=== PATIENT | male | born 1955 | race Caucasian/White ===

== ENCOUNTER 2016-12-17 15:58 | Observation (INO) ==
--- NOTE | 2016-12-17 17:09 | Emergency Department Note ---
Disposition Clinical Impression: Generalized weakness, Hypokalemia, Frequent falls, Multiple contusions Disposition: Admitted As Inpatient Condition: Fair Referrals: NO,PCP [Non-Partnered Physician] - Forms: ED Satisfaction Letter Weakness HPI - General Chief complaint: ED Fall Stated complaint: "I keep on falling" Source: patient Limitations: no limitations Nursing Notes Reviewed: Yes Vital Signs Reviewed: Yes - History of Present Illness Pt Subjective Complaint: generalized weakness/fatigue, difficulty ambulating Onset (ago): day(s) (2) Duration: constant, gradually worsening Location: generalized Pain Scale: 5 Improves with: none Worsens with: none Associated symptoms: Reports: easy bruising. Denies: chest pain, dark stools, diaphoresis, fever/chills, loss of appetite - Related Data Home Medications Medication Instructions Recorded Confirmed Montelukast Sodium [Singulair] 10 mg PO DAILY 02/05/15 12/17/16 Tiotropium [place] [Spiriva] 18 mcg IH DAILY 02/05/15 12/17/16 Aspirin [Adult Low Dose Aspirin EC] 81 mg PO DAILY 10/21/15 12/17/16 Albuterol Sulfate [Proair Hfa] 1 puff IH PRN PRN 12/17/16 12/17/16 Buspirone HCl [Buspar] 10 mg PO DAILY 12/17/16 12/17/16 Citalopram [CeleXA] 40 mg PO DAILY 12/17/16 12/17/16 Fluticasone/Salmeterol [Advair 1 each IH DAILY 12/17/16 12/17/16 250-50 Diskus] Lidocaine/Prilocaine CREAM [Emla] 5 gm TP ONCE PRN 12/17/16 12/17/16 Megestrol Acetate [Megace] 400 mg PO BID PRN 12/17/16 12/17/16 Previous Rx's Medication Instructions Recorded Handicap Placard 1 each .ROUTE AD #1 each 03/19/16 Zolpidem [Ambien] 10 mg PO HS #30 tablet 11/03/16 Oxycodone HCl 15 mg PO TID PRN #90 tablet 12/08/16 Allergies Allergy/AdvReac Type Severity Reaction Status Date / Time No Known Allergies Allergy Verified 05/12/16 11:28 All systems ED: reviewed and negative except as stated. Constitutional: Reports: weakness Cardiovascular: Denies: chest pain Gastrointestinal: Denies: nausea, vomiting, diarrhea Past Medical History - Past Medical History Source: patient, old records reviewed, obtained from family, nursing notes reviewed Medical history: Reports: cancer, COPD, DVT, myocardial infarction Surgical history: Reports: other Psychiatric history: Reports: no psych history - Social History Smoking Status: Current every day smoker Smokeless Tobacco Status: No Alcohol use: Reports: occasionally Drug use: Reports: none Physical Exam - General Limitations: no limitations General appearance: alert - Head Head exam: other (Left facial bruising) - Eye Eye exam: Present: PERRL - Expanded Eye Exam Pupils: Left: reactive - ENT ENT exam: normal exam, normal oropharynx, mucous membranes moist - Expanded ENT Exam External ear exam: Present: normal external inspection Mouth exam: Present: normal external inspection Teeth exam: Present: normal inspection Throat exam: Present: normal inspection - Neck Neck exam: Present: normal inspection, full ROM, trachea midline - Chest Chest inspection: Present: other (She has diffuse bruising of the chest wall) - Respiratory Respiratory exam: Present: other (Diffuse rhonchi). Absent: respiratory distress - Cardiovascular Cardiovascular exam: Present: regular rate, normal rhythm, normal heart sounds - Abdominal Exam Abdominal exam: Present: soft, Non-Tender. Absent: tenderness, distention, guarding, rebound, rigidity - Extremities Exam Extremities exam: Present: normal inspection, full ROM. Absent: tenderness, pedal edema - Expanded Upper Extremity Exam Shoulder exam: Present: normal inspection, full ROM Arm exam: Present: normal inspection, full ROM Elbow exam: Present: normal inspection, full ROM Forearm/Wrist exam: Present: normal inspection, full ROM Hand exam: Present: normal inspection, full ROM Vascular exam: Normal: capillary refill, radial pulse - Expanded Lower Extremity Exam Hip/Pelvis exam: Present: normal inspection, full ROM Upper leg exam: Present: normal inspection, full ROM Knee exam: Present: normal inspection, full ROM Lower leg exam: Present: normal inspection, full ROM Ankle exam: Present: normal inspection, full ROM Foot/toe exam: Present: normal inspection, full ROM Neurovascular/Tendon exam: Absent: motor deficit, sensory deficit, tendon deficit - Back Exam Back exam: Present: normal inspection, full ROM. Absent: tenderness - Neurological Exam Neurological exam: Present: alert, oriented X3 - Expanded Neurological Exam Patient oriented to: Present: person, place, time Coma Scale Eye Opening: Spontaneous Coma Scale Motor Response: Obeys Commands Coma Scale Verbal Response: Oriented Coma Scale Total: 15 - Psychiatric Psychiatric exam: Present: normal affect, normal mood - Skin Skin exam: Present: other (Has diffuse bruising) Course Vital Signs Temperature 98.1 F 12/17/16 16:29 Pulse Rate 64 12/17/16 16:29 Respiratory Rate 18 12/17/16 16:29 Blood Pressure 153/72 12/17/16 16:29 O2 Sat by Pulse Oximetry 95 12/17/16 16:29 Temperature 98.1 F 12/17/16 16:29 Pulse Rate 59 12/17/16 18:42 Respiratory Rate 18 12/17/16 18:42 Blood Pressure 162/61 12/17/16 18:42 O2 Sat by Pulse Oximetry 95 12/17/16 18:42 Oxygen Delivery Oxygen Delivery Room Air Weakness - MDM Narrative Medical decision making narrative: Patient's CT of head and cervical spine were negative chest x-ray negative UA negative laboratory data shows anemia he also has hypokalemia and is not taking any diuretics denies any nausea vomiting. He has diffuse bruising from multiple falls he has bilateral upper and lower extremity weakness and fatigue. - Medical Records Medical records reviewed: Yes I reviewed the patient's medical records. - Lab Data Lab results reviewed: Yes I reviewed the patient's lab results. Result diagrams: 12/17/16 17:04 12/17/16 17:04 Lab Results 12/17/16 12/17/16 12/17/16 Range/Units 17:04 17:04 17:04 WBC 7.1 (4.3-11.1) K/mcL RBC 3.13 L (4.19-5.50) M/mcL Hgb 9.7 L (12.9-16.9) g/dL Hct 29.7 L (37.5-50.1) % MCV 94.9 (83.0-100.0) fL MCH 31.0 (28.0-33.3) pg MCHC 32.7 (31.6-35.5) g/dL RDW 17.2 H (11.5-14.5) % Plt Count 155 (140-400) K/mcL MPV 10.4 (9.4-12.4) fL Immature Gran % 1.1 (0-4) % Seg Neutrophils % 88.3 % Lymphocytes % 6.9 % Monocytes % 3.4 % Eosinophils % 0.3 % Basophils % 0.0 % Neutrophils # 6.3 (1.6-8.9) K/mcL Lymphocytes # 0.5 L (0.6-4.6) K/mcL Monocytes # 0.2 (0.0-1.3) K/mcL Eosinophils # 0.0 (0.0-0.6) K/mcL Basophils # 0.0 (0.0-0.2) K/mcL PT 10.2 (9.4-12.1) Seconds INR 1.0 APTT 24.6 L D (26.0-36.0) Seconds Sodium 139 (136-145) mEq/L Potassium 2.9 L (3.5-4.5) mEq/L Chloride 102 (98-109) mEq/L Carbon Dioxide 31 H (19-29) mEq/L BUN 22 (8-26) mg/dL Creatinine 0.74 (0.72-1.25) mg/dL Est GFR ( Amer) > 60 (> 60) Est GFR (Non-Af Amer) > 60 (> 60) BUN/Creatinine Ratio 30 H (6-26) Glucose 90 (70-99) mg/dL Calculated Osmolality 291 (280-300) Lactic Acid (0.5-2.2) mmol/L Calcium 8.2 L (8.6-10.8) mg/dL Phosphorus 3.1 (2.3-4.7) mg/dL Magnesium 2.1 (1.6-2.6) mg/dL Total Bilirubin 0.7 (0.2-1.2) mg/dL Direct Bilirubin 0.3 (0.0-0.5) mg/dL Indirect Bilirubin 0.4 (0.0-1.2) mg/dL AST 49 H (5-34) Units/L ALT 23 (0-55) Units/L Alkaline Phosphatase 80 (38-126) Units/L Troponin I (0-0.03) ng/mL Serum Total Protein 5.3 L (6.0-8.3) g/dL Albumin 2.8 L (3.5-5.0) g/dL Globulin 2.5 (2.4-3.5) g/dL Albumin/Globulin Ratio 1.1 (1.1-2.2) Urine Color (Yellow) Urine Clarity (Clear) Urine pH (5.0-8.0) pH Units Ur Specific [place] (1.010-1.025) Urine Protein (Neg-Trace) mg/dL Urine Glucose (UA) (Normal) mg/dL Urine Ketones (Negative) mg/dL Urine Blood (Negative) Urine Nitrite (Negative) Urine Bilirubin (Negative) Urine Urobilinogen (Normal) mg/dL Ur Leukocyte Esterase (Negative) Urine Microscopic RBC (0-3) per hpf Urine Microscopic WBC (0-3) per hpf Ur Squamous Epith Cells (None-Few) per lpf Urine Bacteria (None-Few) per hpf Hyaline Casts (None-Few) per lpf Ur Culture Indicated? (NO) 12/17/16 12/17/16 12/17/16 Range/Units 17:04 17:04 18:27 WBC (4.3-11.1) K/mcL RBC (4.19-5.50) M/mcL Hgb (12.9-16.9) g/dL Hct (37.5-50.1) % MCV (83.0-100.0) fL MCH (28.0-33.3) pg MCHC (31.6-35.5) g/dL RDW (11.5-14.5) % Plt Count (140-400) K/mcL MPV (9.4-12.4) fL Immature Gran % (0-4) % Seg Neutrophils % % Lymphocytes % % Monocytes % % Eosinophils % % Basophils % % Neutrophils # (1.6-8.9) K/mcL Lymphocytes # (0.6-4.6) K/mcL Monocytes # (0.0-1.3) K/mcL Eosinophils # (0.0-0.6) K/mcL Basophils # (0.0-0.2) K/mcL PT (9.4-12.1) Seconds INR APTT (26.0-36.0) Seconds Sodium (136-145) mEq/L Potassium (3.5-4.5) mEq/L Chloride (98-109) mEq/L Carbon Dioxide (19-29) mEq/L BUN (8-26) mg/dL Creatinine (0.72-1.25) mg/dL Est GFR ( Amer) (> 60) Est GFR (Non-Af Amer) (> 60) BUN/Creatinine Ratio (6-26) Glucose (70-99) mg/dL Calculated Osmolality (280-300) Lactic Acid 0.5 (0.5-2.2) mmol/L Calcium (8.6-10.8) mg/dL Phosphorus (2.3-4.7) mg/dL Magnesium (1.6-2.6) mg/dL Total Bilirubin (0.2-1.2) mg/dL Direct Bilirubin (0.0-0.5) mg/dL Indirect Bilirubin (0.0-1.2) mg/dL AST (5-34) Units/L ALT (0-55) Units/L Alkaline Phosphatase (38-126) Units/L Troponin I 0.01 (0-0.03) ng/mL Serum Total Protein (6.0-8.3) g/dL Albumin (3.5-5.0) g/dL Globulin (2.4-3.5) g/dL Albumin/Globulin Ratio (1.1-2.2) Urine Color Dark Yellow (Yellow) Urine Clarity Clear (Clear) Urine pH 6.0 (5.0-8.0) pH Units Ur Specific [place] 1.027 H (1.010-1.025) Urine Protein 30 H (Neg-Trace) mg/dL Urine Glucose (UA) Normal (Normal) mg/dL Urine Ketones Negative (Negative) mg/dL Urine Blood Negative (Negative) Urine Nitrite Negative (Negative) Urine Bilirubin Negative (Negative) Urine Urobilinogen Normal (Normal) mg/dL Ur Leukocyte Esterase Negative (Negative) Urine Microscopic RBC 0-3 (0-3) per hpf Urine Microscopic WBC 0-3 (0-3) per hpf Ur Squamous Epith Cells Moderate H (None-Few) per lpf Urine Bacteria None Seen (None-Few) per hpf Hyaline Casts None Seen (None-Few) per lpf Ur Culture Indicated? NO (NO)
[2016-12-17 17:30] LABS: Eosinophils % 0.3 %; Hematocrit 29.7 % (37.5-50.1); Hemoglobin 9.7 g/dL (12.9-16.9); Immature Granulocytes % 1.1 % (0-4); Lymphocytes # 0.5 K/mcL (0.6-4.6); Lymphocytes % 6.9 %; Mean Corpuscular HGB Conc 32.7 g/dL (31.6-35.5); Mean Corpuscular Volume 94.9 fL (83.0-100.0); Mean Platelet Volume 10.4 fL (9.4-12.4); Monocytes # 0.2 K/mcL (0.0-1.3); Monocytes % 3.4 %; Neutrophils # 6.3 K/mcL (1.6-8.9); Platelet Count 155 K/mcL (140-400); Red Blood Count 3.13 M/mcL (4.19-5.50); Red Cell Distribution Width 17.2 % (11.5-14.5); Segmented Neutrophils % 88.3 %
[2016-12-17 17:38] LABS: Prothrombin Time 10.2 Seconds (9.4-12.1)
[2016-12-17 17:41] LABS: Alanine Aminotransferase 23 Units/L (0-55); Albumin 2.8 g/dL (3.5-5.0); Albumin/Globulin Ratio 1.1 (1.1-2.2); Alkaline Phosphatase 80 Units/L (38-126); Aspartate Amino Transferase 49 Units/L (5-34); BUN/Creatinine Ratio 30 (6-26); Bilirubin,Direct 0.3 mg/dL (0.0-0.5); Bilirubin,Indirect 0.4 mg/dL (0.0-1.2); Bilirubin,Total 0.7 mg/dL (0.2-1.2); Blood Urea Nitrogen 22 mg/dL (8-26); Calcium 8.2 mg/dL (8.6-10.8); Carbon Dioxide 31 mEq/L (19-29); Chloride 102 mEq/L (98-109); Globulin 2.5 g/dL (2.4-3.5); Glucose 90 mg/dL (70-99); Magnesium 2.1 mg/dL (1.6-2.6); Osmolality,Calculated 291 (280-300); Phosphorous 3.1 mg/dL (2.3-4.7); Potassium 2.9 mEq/L (3.5-4.5); Sodium 139 mEq/L (136-145); Total Protein 5.3 g/dL (6.0-8.3); eGFR For African Americans > 60 (> 60); eGFR For Non-African Americans > 60 (> 60)
[2016-12-17 17:45] LABS: Activated Partial Thrombo Time 24.6 Seconds (26.0-36.0)
[2016-12-17 18:36] LABS: Bilirubin,Urine Negative (Negative); Blood,Urine Negative (Negative); Clarity,Urine Clear (Clear); Color,Urine Dark Yellow (Yellow); Glucose,Urine (UA) Normal (Normal); Ketones,Urine Negative (Negative); Leukocyte Esterase,Urine Negative (Negative); Nitrite,Urine Negative (Negative); Protein,Urine 30 mg/dL (Neg-Trace); Specific Gravity,Urine 1.027 (1.010-1.025); Urobilinogen,Urine Normal (Normal)
[2016-12-17 18:37] LABS: Bacteria,Urine None Seen per hpf (None-Few); Hyaline Casts,Urine None Seen per lpf (None-Few); RBC,Urine 0-3 per hpf (0-3); Squamous Epithelial Cell,Urine Moderate per lpf (None-Few); WBC,Urine 0-3 per hpf (0-3)
[2016-12-17] MEDS ORDERED: Potassium Chloride 40 MEQ, Lidocaine 1% 2 ML in D5% in Water 500 ML IVPB ONE (18:41)
[2016-12-17] MEDS ORDERED: *HR* OxyCODONE Immed Rel 15 MG TABLET PO PRN (23:03)
[2016-12-17] MEDS ORDERED: Megestrol Acetate 400 MG/10 ML UDC PO PRN (23:03)
--- NOTE | 2016-12-17 23:07 | Internal Med History&Physical ---
Date of Encounter: 12/17/16 Time of Encounter: 23:05 Assessment and Plan (1) Small cell lung cancer Current visit: No Status: Acute Stage IV. Currently on gemcitabine. Weight loss and significant functional decline. Qualifiers: Qualified Code(s): C34.90 - Malignant neoplasm of unspecified part of unspecified bronchus or lung (2) Generalized weakness Current visit: Yes Status: Acute Generalized weakness and recurrent falls. Likely related to deconditioning from functional decline related to cancer, hypokalemia. Another possibility is for neoplastic syndrome causing some sort of myopathy. I will check cortisol level also in am. I would also check MRI of the brain in a.m. Physical therapy to see the patient. Plan for skilled care. (3) Hypokalemia Current visit: Yes Status: Acute Due to decreased PO intake. This is being replaced. (4) COPD (chronic obstructive pulmonary disease) Current visit: No Status: Acute Stable no active wheezing. Qualifiers: COPD type: chronic bronchitis Chronic bronchitis type: mucopurulent Qualified Code(s): J41.1 - Mucopurulent chronic bronchitis Internal Medicine - H&P: HPI Chief complaint: recurrent falls History of present illness: Mr. Hitchcock is a 61 year old male with stage IV small cell lung cancer on gemcitabine, presents to the emergency room today because of recurrent falls. Patient has had 3 falls since Thursday 2 days ago. He describes falls as due to weakness and gait unsteadiness. He has been noticing that both was lower extremities are very weak. He has been ambulating with a walker. Still able to raise both lower extremity against gravity. He apathetic has declined because of cancer and potassium was found to be 2.9 today. He denies any diary and is not taking any diuretics. He denies any hematoemesis, melena or hematochezia. He had an MRI of the brain performed in October 2016 showing subdural hematoma or hygromas. But no evidence of metastatic disease. He denies any syncope as a cause of the fall. He denies any new focal weakness much rather generalized weakness. He has slight left-sided weakness related to prior CVA. There is no witness seizure activity. Yesterday patient fell on the ground stayed for 2 hours presented to the emergency room workup was unremarkable and was discharged home. He presents today because of recurrent falls. Patient lost 4 pounds in the past 3 weeks. Family is interested in skilled care. Past Med Surg Social Fam HX - Past Medical History Medical history: cancer, COPD, DVT, myocardial infarction Psychiatric history: no psych history - Past Surgical History Surgical History: other - Social History Smoking Status: Current every day smoker Smokeless Tobacco Status: No Alcohol use: occasionally Drug use: none - Family History Father Hx Family Cancer: Yes Internal Medicine - H&P: Meds Montelukast Sodium [Singulair] 10 mg PO DAILY 02/05/15 [History] Tiotropium [place] [Spiriva] 18 mcg IH DAILY 02/05/15 [History] Aspirin [Adult Low Dose Aspirin EC] 81 mg PO DAILY 10/21/15 [History] Zolpidem [Ambien] 10 mg PO HS #30 tablet 11/03/16 [Rx] Oxycodone HCl 15 mg PO TID PRN #90 tablet 12/08/16 [Rx] Albuterol Sulfate [Proair Hfa] 2 puff IH Q4H PRN 12/17/16 [History] Buspirone HCl [Buspar] 10 mg PO DAILY 12/17/16 [History] Citalopram [CeleXA] 40 mg PO DAILY 12/17/16 [History] Fluticasone/Salmeterol [Advair 250-50 Diskus] 1 each IH BID 12/17/16 [History] LORazepam [Ativan] 1 mg PO HS PRN 12/17/16 [History] Lidocaine/Prilocaine CREAM [Emla] 1 appl TP ONCE PRN 12/17/16 [History] Megestrol Acetate [Megace] 400 mg PO BID PRN 12/17/16 [History] Allergies No Known Allergies Allergy (Verified 05/12/16 11:28) All Systems PM: A 10-system review of systems was performed and is negative for pertinent findings except as documented above in the HPI. Review of systems: 10 point review systems is negative except for HPI. - Constitutional Vitals: Temp Pulse Resp BP Pulse Ox 98.1 F 59 14 149/79 95 12/17/16 16:29 12/17/16 18:42 12/17/16 20:43 12/17/16 20:43 12/17/16 18:42 Exam: Gen.: patient is lethargic oriented times 3 cardiac: normal S1 S2 no additional sounds or murmurs chest: no active wheezing or bronchial breathing abdomen soft nontender nondistended normal bowel sounds lower extremity no swelling. He is able to raise both lower extremity against gravity. Neuro: no new focal deficits Internal Med - H&P Results - Labs CBC & Chem 7: 12/17/16 17:04 12/17/16 17:04
[2016-12-17] MEDS: 0.9 % Sodium Chloride 1,000 ML IVC SCH (23:26)
[2016-12-18 05:29] LABS: Basophils % 0.1 %; Eosinophils % 0.3 %; Hematocrit 27.8 % (37.5-50.1); Hemoglobin 9.1 g/dL (12.9-16.9); Immature Granulocytes % 0.8 % (0-4); Lymphocytes # 0.7 K/mcL (0.6-4.6); Lymphocytes % 8.8 %; Mean Corpuscular HGB Conc 32.7 g/dL (31.6-35.5); Mean Corpuscular Hemoglobin 30.8 pg (28.0-33.3); Mean Corpuscular Volume 94.2 fL (83.0-100.0); Mean Platelet Volume 10.6 fL (9.4-12.4); Monocytes # 0.2 K/mcL (0.0-1.3); Monocytes % 2.1 %; Neutrophils # 6.6 K/mcL (1.6-8.9); Platelet Count 146 K/mcL (140-400); Red Blood Count 2.95 M/mcL (4.19-5.50); Segmented Neutrophils % 87.9 %
[2016-12-18 05:51] LABS: BUN/Creatinine Ratio 24 (6-26); Blood Urea Nitrogen 16 mg/dL (8-26); Calcium 7.9 mg/dL (8.6-10.8); Carbon Dioxide 30 mEq/L (19-29); Chloride 103 mEq/L (98-109); Glucose 85 mg/dL (70-99); Magnesium 1.8 mg/dL (1.6-2.6); Osmolality,Calculated 290 (280-300); Potassium 3.1 mEq/L (3.5-4.5); Sodium 140 mEq/L (136-145); eGFR For African Americans > 60 (> 60); eGFR For Non-African Americans > 60 (> 60)
[2016-12-18] MEDS: Aspirin Enteric Coated 81 MG Tablet PO SCH (07:56)
[2016-12-18] MEDS: Tiotropium 18 MCG inhalation IH SCH (08:56)
[2016-12-18] MEDS ORDERED: Budesonide/Formoterol 80/4.5 MDI IH SCH (10:00)
[2016-12-18] MEDS: 0.9 % Sodium Chloride 1,000 ML IVC SCH (12:27)
--- NOTE | 2016-12-18 14:00 | Internal Med Progress Note ---
Date of Encounter: 12/18/16 Time of Encounter: 10:30 - Assessment and plan (1) Frequent falls Current Visit: Yes Status: Acute Assessment and plan: OT and PT consultations are pending. On examination, patient with left upper extremity weakness however legs are weak but equal. Speech is slightly slurred which is chronic as well as left upper extremity weakness from a prior CVA. Unintentional weight loss noted, he is on Megace, nutrition brought on board. Urinalysis negative. Cervical spine CT negative. Chest x-ray without acute processes. Head CT negative. MRI pending. (2) Multiple contusions Current Visit: Yes Status: Acute Assessment and plan: Patient with multiple computed contusions over most of his body. He has a history of thrombocytopenia but currently levels are normal. No signs of active bleeding, will trend. (3) TIA (transient ischemic attack) Current Visit: No Status: Suspected Qualifiers: Transient cerebral ischemia type: unspecified Qualified Code(s): G45.9 - Transient cerebral ischemic attack, unspecified (4) Hemiparesis, left Current Visit: Yes Status: Chronic Assessment and plan: LUE weakness; strength equal to bilateral lower extremities. (5) Unintentional weight loss Current Visit: Yes Status: Acute Assessment and plan: acute on chronic. Patient is a poor historian regarding PO intake. Will consult nutrition. Home medication of Megace listed as when necessary, changed to scheduled (6) Cerebrovascular accident Current Visit: No Status: Chronic Assessment and plan: No new focal neurological weaknesses. He is left-sided weakness and slurred speech is chronic from prior CVA. MRI pending. OT and PT are on board as well. Qualifiers: CVA mechanism: unspecified Qualified Code(s): I63.9 - Cerebral infarction, unspecified (7) Anemia Current Visit: No Status: Chronic Assessment and plan: Currently at the low end of his normal. Suspect anemia of chronic disease however no recent checks of his iron, B12, folate, TSH Qualifiers: Anemia type: unspecified type Qualified Code(s): D64.9 - Anemia, unspecified (8) Alcohol abuse Current Visit: No Status: Chronic Assessment and plan: No signs of withdrawal, will continue to monitor (9) Generalized weakness Current Visit: No Status: Acute Assessment and plan: OT and PT consultations are pending. (10) Confusion Current Visit: No Status: Resolved Assessment and plan: Patient is alert and oriented 3. He is a remarkably poor historian on the details when asked detailed questions however he is oriented 3. Speech is slightly slurred/garbled but fully intelligible. (11) Hypokalemia Current Visit: Yes Status: Acute Assessment and plan: Improving, we will continue to supplement and trend. Magnesium levels normal (12) Tobacco abuse Current Visit: No Status: Chronic Assessment and plan: Declines counseling (13) COPD (chronic obstructive pulmonary disease) Current Visit: No Status: Chronic Assessment and plan: No acute exacerbation Qualifiers: COPD type: chronic bronchitis Chronic bronchitis type: mucopurulent Qualified Code(s): J41.1 - Mucopurulent chronic bronchitis (14) Small cell lung cancer Current Visit: No Status: Chronic Assessment and plan: Plain film imaging without acute processes. ITS Impressions Chest X-Ray 12/17/16 17:07 IMPRESSION: 1. No active pulmonary disease. 2. Stable opacification of the right lung apex. Please refer to the CT chest report dated 11/0610/09/2016. D/ / Ramone Plummer MD / Ramone Plummer MD Interpreting Provider: Ramone Plummer MD Qualifiers: Laterality: right Qualified Code(s): C34.91 - Malignant neoplasm of unspecified part of right bronchus or lung - Subjective Interval history: Patient seen and examined. On examination, patient resting supine in bed. Patient currently denies pain or shortness of breath. He states he continues to feel weak. He states that he feels as if he is eating well. - Constitutional Vitals: Temp Pulse Resp BP Pulse Ox 97.8 F 61 17 136/60 98 12/18/16 11:18 12/18/16 11:18 12/18/16 11:18 12/18/16 11:18 12/18/16 11:18 General appearance: Present: cachectic, A&O X 3, pleasant, no acute distress, answers questions appropriately - Head Head exam: Present: atraumatic, normocephalic - Eye Eye exam: Present: PERRL, conjuntiva pink, sclera anicteric Pupils: Present: PERRL - Neck Neck exam general surgery: Present: supple, trachea midline. Absent: lymphadenopathy - Respiratory Respiratory exam: Present: decreased breath sounds. Absent: accessory muscle use, rales, respiratory distress, rhonchi, wheezes - Cardiovascular Cardiovascular exam: Present: RRR, +S1, +S2. Absent: diastolic murmur, gallop, rubs, systolic murmur - GI/Abdominal GI/Abdominal exam: Present: normal bowel sounds, soft, no peritoneal signs. Absent: distended, tenderness - Extremities Exam Extremities exam: Present: warm, radial pulses palpable and symetrical. Absent : calf tenderness, cyanotic, pedal edema - Neurological Exam Neurological exam: Present: alert, CN II-XII intact, oriented X3, no focal deficits, speech deficit. Absent: strengths equal and symetr throughout, pronater drift, facial droop - Expanded Neurological Exam Neurological exam expanded: Present: protecting the airway Patient oriented to: Present: person, place, time Speech: Present: fluid speech, slurred Cranial Nerves: EOM's intact PM: Normal Neuro motor strength exam: LUE: 4, RUE: 5, LLE: 5, RLE: 5 Coma Scale Eye Opening: Spontaneous Coma Scale Motor Response: Obeys Commands Coma Scale Verbal Response: Oriented Coma Scale Total: 15 - Skin Skin exam: Present: dry, intact, pallor, warm Additional comments: ecchymosis to most of body surface area Internal Medicine: Result - Labs CBC & Chem 7: 12/18/16 05:15 12/18/16 05:15 Labs: Short CBC 12/18/16 Range/Units 05:15 WBC 7.5 (4.3-11.1) K/mcL Hgb 9.1 L (12.9-16.9) g/dL Hct 27.8 L (37.5-50.1) % Plt Count 146 (140-400) K/mcL Neutrophils # 6.6 (1.6-8.9) K/mcL BMP 12/18/16 05:15 Sodium 140 Potassium 3.1 L Chloride 103 Carbon Dioxide 30 H BUN 16 Creatinine 0.66 L Glucose 85 Calcium 7.9 L - ABG Interpretation ABG results: PT/INR, D-dimer PT 10.2 Seconds (9.4-12.1) 12/17/16 17:04 Consult Discharge Plan - Plan Referrals: Feliz Dahl DO [Primary Care Provider] -
[2016-12-18] MEDS ORDERED: *HR* LORazepam 1 MG TABLET PO PRN (14:13)
--- NOTE | 2016-12-18 14:46 | Electrocardiograph Report ---
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
[2016-12-18] MEDS: Nicotine 21 MG PATCH.TD24 TD SCH (16:51)
[2016-12-18] MEDS: 0.9 % Sodium Chloride w KCl 40 MEQ/1,000 ML MLS IVC SCH (16:52)
[2016-12-18] MEDS: Megestrol Acetate 400 MG/10 ML UDC PO SCH (20:04)
[2016-12-19 05:39] LABS: Basophils % 0.1 %; Eosinophils % 0.1 %; Hemoglobin 9.3 g/dL (12.9-16.9); Immature Granulocytes % 0.8 % (0-4); Lymphocytes # 0.6 K/mcL (0.6-4.6); Lymphocytes % 7.2 %; Mean Corpuscular HGB Conc 33.2 g/dL (31.6-35.5); Mean Corpuscular Hemoglobin 31.3 pg (28.0-33.3); Mean Corpuscular Volume 94.3 fL (83.0-100.0); Monocytes # 0.2 K/mcL (0.0-1.3); Monocytes % 1.7 %; Neutrophils # 7.9 K/mcL (1.6-8.9); Platelet Count 144 K/mcL (140-400); Red Blood Count 2.97 M/mcL (4.19-5.50); Red Cell Distribution Width 17.2 % (11.5-14.5); Segmented Neutrophils % 90.1 %
[2016-12-19 05:51] LABS: % Iron Saturation 44 % (20-55); BUN/Creatinine Ratio 19 (6-26); Blood Urea Nitrogen 12 mg/dL (8-26); Carbon Dioxide 28 mEq/L (19-29); Chloride 103 mEq/L (98-109); Glucose 87 mg/dL (70-99); Iron 104 mcg/dL (65-175); Osmolality,Calculated 283 (280-300); Potassium 3.6 mEq/L (3.5-4.5); Sodium 137 mEq/L (136-145); Transferrin 167 mg/dL (174-364); eGFR For African Americans > 60 (> 60); eGFR For Non-African Americans > 60 (> 60)
[2016-12-19 06:11] LABS: Ferritin 594 ng/ml (22-275)
[2016-12-19] MEDS: Megestrol Acetate 400 MG/10 ML UDC PO SCH (07:29)
[2016-12-19] MEDS: Nicotine 21 MG PATCH.TD24 TD SCH (07:29)
[2016-12-19] MEDS: 0.9 % Sodium Chloride w KCl 40 MEQ/1,000 ML MLS IVC SCH (07:29)
[2016-12-19] MEDS: Aspirin Enteric Coated 81 MG Tablet PO SCH (07:30)
[2016-12-19] MEDS ORDERED: Budesonide/Formoterol 80/4.5 MDI IH SCH (10:00)
[2016-12-19] MEDS: Tiotropium 18 MCG inhalation IH SCH (10:18)
[2016-12-19 12:02] LABS: Thyroid Stimulating Hormone 1.348 mcIU/mL (0.350-4.840)
--- NOTE | 2016-12-19 13:56 | Internal Med Progress Note ---
Date of Encounter: 12/19/16 Time of Encounter: 10:00 - Assessment and plan (1) Frequent falls Current Visit: Yes Status: Acute Assessment and plan: OT and PT have recommended inpatient rehabilitation. Patient initially resistant but after speaking to his family, he is consenting to be placed. We are having difficulty placing him at this time. Per social human services assistants, we have not found a facility thus far that has beds and that allows the patient to smoke. Awaiting placement. He is not safe to be discharged in the meantime. On examination, patient with left upper extremity weakness however legs are weak but equal. Speech is slightly slurred which is chronic as well as left upper extremity weakness from a prior CVA. Unintentional weight loss noted, he is on Megace, nutrition brought on board. Urinalysis negative. Cervical spine CT negative. Chest x-ray without acute processes. Head CT negative. MRI negative for acute processes ITS Impressions Cervical Spine CT 12/17/16 17:07 IMPRESSION: No acute abnormality of the cervical spine. D/ / Taras Teresa MD / Taras Teresa MD Interpreting Provider: Taras Teresa MD Chest X-Ray 12/17/16 17:07 IMPRESSION: 1. No active pulmonary disease. 2. Stable opacification of the right lung apex. Please refer to the CT chest report dated 11/0610/09/2016. D/ / Ramone Plummer MD / Ramone Plummer MD Interpreting Provider: Ramone Plummer MD Head CT 12/17/16 17:07 IMPRESSION: 1. No acute intracranial abnormality. 2. Diffuse cerebral atrophy with chronic small vessel ischemic disease. D/ / Ramone Plummer MD / Ramone Plummer MD Interpreting Provider: Ramone Plummer MD Brain MRI 12/17/16 22:42 IMPRESSION: No evidence of acute ischemic insult, acute intracranial hemorrhage, or mass lesion. No evidence of intracranial metastatic disease. Interval resolution of right cerebral convexity subdural hygroma. Interval progression of cerebral white matter disease, likely progressive post radiation changes. Cerebellar volume loss appears increased. D/ / Ace Cunningham MD / Ace Cunningham MD Interpreting Provider: Ace Cunningham MD (2) Multiple contusions Current Visit: Yes Status: Acute Assessment and plan: Patient with multiple contusions over most of his body. He has a history of thrombocytopenia but currently levels are normal. No signs of active bleeding, will trend. (3) TIA (transient ischemic attack) Current Visit: No Status: Suspected Qualifiers: Transient cerebral ischemia type: unspecified Qualified Code(s): G45.9 - Transient cerebral ischemic attack, unspecified (4) Hemiparesis, left Current Visit: Yes Status: Chronic Assessment and plan: LUE weakness; strength equal to bilateral lower extremities. (5) Unintentional weight loss Current Visit: Yes Status: Acute Assessment and plan: acute on chronic. Patient is a poor historian regarding PO intake. Will consult nutrition. Home medication of Megace listed as when necessary, changed to scheduled (6) Cerebrovascular accident Current Visit: No Status: Chronic Assessment and plan: No new focal neurological weaknesses. He is left-sided weakness and slurred speech is chronic from prior CVA. MRI negative for acute processes. OT and PT have recommended inpatient rehabilitation. Patient's stated that he was independent with his ADLs up until several days ago. Qualifiers: CVA mechanism: unspecified Qualified Code(s): I63.9 - Cerebral infarction, unspecified (7) Anemia Current Visit: No Status: Chronic Assessment and plan: Currently at the low end of his normal. Suspect anemia of chronic disease however no recent checks of his iron, B12, folate, TSH. No indication for supplementation at this time Qualifiers: Anemia type: unspecified type Qualified Code(s): D64.9 - Anemia, unspecified (8) Alcohol abuse Current Visit: No Status: Chronic Assessment and plan: No signs of withdrawal, will continue to monitor (9) Generalized weakness Current Visit: No Status: Acute Assessment and plan: Awaiting ECF placement (10) Confusion Current Visit: No Status: Resolved Assessment and plan: Patient is alert and oriented 3. He is a remarkably poor historian on the details when asked detailed questions however he is oriented 3. Speech is slightly slurred/garbled but fully intelligible. (11) Hypokalemia Current Visit: Yes Status: Resolved (12) Tobacco abuse Current Visit: No Status: Chronic Assessment and plan: Declines counseling (13) COPD (chronic obstructive pulmonary disease) Current Visit: No Status: Chronic Assessment and plan: No acute exacerbation Qualifiers: COPD type: chronic bronchitis Chronic bronchitis type: mucopurulent Qualified Code(s): J41.1 - Mucopurulent chronic bronchitis (14) Small cell lung cancer Current Visit: No Status: Chronic Assessment and plan: Plain film imaging without acute processes. ITS Impressions Chest X-Ray 12/17/16 17:07 IMPRESSION: 1. No active pulmonary disease. 2. Stable opacification of the right lung apex. Please refer to the CT chest report dated 11/0610/09/2016. D/ / Ramone Plummer MD / Ramone Plummer MD Interpreting Provider: Ramone Plummer MD Qualifiers: Laterality: right Qualified Code(s): C34.91 - Malignant neoplasm of unspecified part of right bronchus or lung - Subjective Interval history: Patient seen and examined. On examination, patient resting supine in bed. Patient currently denies pain or shortness of breath. He states he continues to feel weak. He states that he feels as if he is eating well but his son is at the bedside and has brought him in [place] that he has not eaten. - Constitutional Vitals: Temp Pulse Resp BP Pulse Ox 97.5 F L 76 14 154/73 97 12/19/16 10:55 12/19/16 10:55 12/19/16 10:55 12/19/16 10:55 12/19/16 10:55 General appearance: Present: cachectic, A&O X 3, pleasant, no acute distress, answers questions appropriately - Head Head exam: Present: atraumatic, normocephalic - Eye Eye exam: Present: PERRL, conjuntiva pink, sclera anicteric Pupils: Present: PERRL - Neck Neck exam general surgery: Present: supple, trachea midline. Absent: lymphadenopathy - Respiratory Respiratory exam: Present: decreased breath sounds. Absent: accessory muscle use, rales, respiratory distress, rhonchi, wheezes - Cardiovascular Cardiovascular exam: Present: RRR, +S1, +S2. Absent: diastolic murmur, gallop, rubs, systolic murmur - GI/Abdominal GI/Abdominal exam: Present: normal bowel sounds, soft, no peritoneal signs. Absent: distended, tenderness - Extremities Exam Extremities exam: Present: warm, radial pulses palpable and symetrical. Absent : calf tenderness, cyanotic, pedal edema - Neurological Exam Neurological exam: Present: alert, CN II-XII intact, oriented X3, no focal deficits, speech deficit. Absent: strengths equal and symetr throughout, pronater drift, facial droop - Expanded Neurological Exam Neurological exam expanded: Present: protecting the airway Patient oriented to: Present: person, place, time Speech: Present: garbled (but intelligible), slurred Neuro motor strength exam: LUE: 4, RUE: 5, LLE: 4, RLE: 5 Coma Scale Eye Opening: Spontaneous Coma Scale Motor Response: Obeys Commands Coma Scale Verbal Response: Oriented Coma Scale Total: 15 - Skin Skin exam: Present: dry, intact, pallor, warm Internal Medicine: Result - Labs CBC & Chem 7: 12/19/16 05:30 12/19/16 05:30 Labs: Short CBC 12/19/16 Range/Units 05:30 WBC 8.7 (4.3-11.1) K/mcL Hgb 9.3 L (12.9-16.9) g/dL Hct 28.0 L (37.5-50.1) % Plt Count 144 (140-400) K/mcL Neutrophils # 7.9 (1.6-8.9) K/mcL BMP 12/19/16 05:30 Sodium 137 Potassium 3.6 Chloride 103 Carbon Dioxide 28 BUN 12 Creatinine 0.63 L Glucose 87 Calcium 8.0 L - ABG Interpretation ABG results: PT/INR, D-dimer PT 10.2 Seconds (9.4-12.1) 12/17/16 17:04 - Impressions Impressions Brain MRI 12/17/16 22:42 IMPRESSION: No evidence of acute ischemic insult, acute intracranial hemorrhage, or mass lesion. No evidence of intracranial metastatic disease. Interval resolution of right cerebral convexity subdural hygroma. Interval progression of cerebral white matter disease, likely progressive post radiation changes. Cerebellar volume loss appears increased. D/ / Ace Cunningham MD / Ace Cunningham MD Interpreting Provider: Ace Cunningham MD Consult Discharge Plan - Plan Referrals: Feliz Dahl DO [Primary Care Provider] -
[2016-12-19 14:46] VITALS: BP 127/72
--- NOTE | 2016-12-19 17:20 | Discharge Summary ---
Date of Encounter: 12/19/16 Time of Encounter: 10:30 - Discharge Diagnosis (1) Frequent falls Priority: Primary Status: Acute Comments: OT and PT have recommended inpatient rehabilitation- sending to [facility]. Patient initially resistant but after speaking to his family, he is consenting to be placed. (2) Multiple contusions Priority: Primary Status: Acute Comments: Patient with multiple contusions over most of his body. He has a history of thrombocytopenia but currently levels are normal. No signs of active bleeding, follow-up outpatient (3) TIA (transient ischemic attack) Priority: Primary Status: Resolved Qualifiers: Transient cerebral ischemia type: unspecified Qualified Code(s): G45.9 - Transient cerebral ischemic attack, unspecified (4) Hemiparesis, left Priority: Secondary Status: Chronic (5) Unintentional weight loss Priority: Primary Status: Acute Comments: acute on chronic. Patient is a poor historian regarding PO intake but his son states that he really only eats lunch on most days. Continue megace- patient refused marinol. Will send with Ensure too. Seen by nutrition during this admission (6) Cerebrovascular accident Priority: Secondary Status: Chronic Qualifiers: CVA mechanism: unspecified Qualified Code(s): I63.9 - Cerebral infarction, unspecified (7) Anemia Priority: Secondary Status: Chronic Comments: Currently at the low end of his normal. Suspect anemia of chronic disease however no recent checks of his iron, B12, folate, TSH. No indication for supplementation at this time. Follow-up outpatient Qualifiers: Anemia type: unspecified type Qualified Code(s): D64.9 - Anemia, unspecified (8) Alcohol abuse Priority: Secondary Status: Chronic Comments: No signs of withdrawal during this admission (9) Generalized weakness Priority: Primary Status: Acute (10) Confusion Priority: Primary Status: Resolved (11) Hypokalemia Priority: Primary Status: Resolved (12) Tobacco abuse Priority: Secondary Status: Chronic Comments: Declines counseling (13) COPD (chronic obstructive pulmonary disease) Priority: Secondary Status: Chronic Comments: No acute exacerbation Qualifiers: COPD type: chronic bronchitis Chronic bronchitis type: mucopurulent Qualified Code(s): J41.1 - Mucopurulent chronic bronchitis (14) Small cell lung cancer Priority: Secondary Status: Chronic Comments: Plain film imaging without acute processes. ITS Impressions Chest X-Ray 06/14/17 17:07 IMPRESSION: 1. No active pulmonary disease. 2. Stable opacification of the right lung apex. Please refer to the CT chest report dated 11/0610/09/2016. D/ / Ramone Plummer MD / Ramone Plummer MD Interpreting Provider: Ramone Plummer MD Qualifiers: Laterality: right Qualified Code(s): C34.91 - Malignant neoplasm of unspecified part of right bronchus or lung - Discharge Medications Prescriptions: LORazepam [Ativan] 1 mg PO HS PRN #7 tablet PRN Reason: Anxiety Oxycodone HCl 15 mg PO TID PRN #21 tablet PRN Reason: Pain Zolpidem [Ambien] 10 mg PO HS #7 tablet Home Medications: Montelukast Sodium [Singulair] 10 mg PO DAILY 02/05/15 [History] Tiotropium [place] [Spiriva] 18 mcg IH DAILY 02/05/15 [History] Aspirin [Adult Low Dose Aspirin EC] 81 mg PO DAILY 10/21/15 [History] Albuterol Sulfate [Proair Hfa] 2 puff IH Q4H PRN 12/17/16 [History] Buspirone HCl [Buspar] 10 mg PO DAILY 12/17/16 [History] Citalopram [CeleXA] 40 mg PO DAILY 12/17/16 [History] Fluticasone/Salmeterol [Advair 250-50 Diskus] 1 each IH BID 12/17/16 [History] Lidocaine/Prilocaine CREAM [Emla] 1 appl TP ONCE PRN 12/17/16 [History] Megestrol Acetate [Megace] 400 mg PO BID PRN 12/17/16 [History] LORazepam [Ativan] 1 mg PO HS PRN #7 tablet 12/19/16 [Rx] Oxycodone HCl 15 mg PO TID PRN #21 tablet 12/19/16 [Rx] Zolpidem [Ambien] 10 mg PO HS #7 tablet 12/19/16 [Rx] Allergies/Adverse Reactions: Allergies No Known Allergies Allergy (Verified 05/12/16 11:28) Procedures/tests Complete & Pending: Procedures Performed prior 72 hours Category Date Time Status MR head/brain wo/w con [MR] Routine MRI 12/17/16 22:42 Completed Date of admission: 12/17/16 19:29 Primary care physician: Feliz Dahl Consults: 12/17/16 21:21 Consult to Public Address System Installer [CONS] Routine Reason for SW Consult: POSSIBLE ECF/REHAB NEED 12/17/16 22:42 Consult to Occupational Therapy [CONS] Routine Comment: Evaluate, develop and implement POC Reason for Consult: weakness Consult to Physical Therapy [CONS] Routine Comment: Evaluate, develop and implement POC Reason for Consult: weakness 12/18/16 14:04 Consult to Nutrition [CONS] Routine Comment: on chemo, unintentional wt loss Consulting Provider: NUTRITION Reason for Dietary Consult: PO Supplementation Discharging clinician: Ashley Amezquita Anticipated date of discharge: 12/19/16 (sending to [place] [facility]) - Patient Status Disposition: Transfer Inpatient Rehab Fac Condition: Fair Functional capacity at discharge: uses cane/walker Overall status at discharge: patient is progressing back to baseline - Discharge Instructions Follow Up With: Feliz Dahl DO [Primary Care Provider] - Additional Instructions: Follow-up with primary care provider within one to 2 weeks - Diet and Activity Activity: ambulate only with your walker, as per physical therapy, increase activity as tolerated Diet: regular diet (with ensure tidwm) Hospital course: Mr. Hitchcock is a 61 year old male with past medical history of stage IV small cell lung cancer on gemcitabine, CVA with resultant left-sided hemiparesis, COPD , DVT, tobacco abuse. Patient presented to the emergency room for chief complaint of recurrent falls. Patient has had 3 falls on the 2 days prior to presentation. Patient describes the falls as due to weakness and gait unsteadiness. Patient noticed that both of his lower extremities were very weak. He had been ambulating with a walker. Workup in the emergency department notable for hypokalemia. Cervical spine CT negative. Chest x-ray negative for acute processes. Head CT negative for acute processes. Patient was admitted to the hospitalist service for further evaluation and management. Patient remained alert and oriented 3 throughout this admission. His speech was slightly slurred/garbled but fully intelligible and consistent with his baseline. He continued to have left-sided weakness which is chronic for him. He had no acute focal neurological weaknesses during this admission. MRI was negative for acute processes. Of note, the patient's stated that he was independent with his activities of daily living up until one week prior to presentation. He is also had unintentional weight loss. He is on Megace at home. Does not seem to be working so I discussed with him changing to Marinol but he refused. He eats typically one large meal a day and he was encouraged to eat more often. Nutrition was brought on board and Ensure supplementation was continued. Hypokalemia resolved. He was seen and evaluated by occupational and physical therapy both of whom recommended inpatient rehabilitation. Patient was initially resistant but after speaking with his family, he consented to being placed. Urinalysis negative. He was discharged to [facility] in stable condition with close outpatient follow-up recommended. ITS Impressions Cervical Spine CT 12/17/16 17:07 IMPRESSION: No acute abnormality of the cervical spine. D/ / Taras Teresa MD / Taras Teresa MD Interpreting Provider: Taras Teresa MD Chest X-Ray 12/17/16 17:07 IMPRESSION: 1. No active pulmonary disease. 2. Stable opacification of the right lung apex. Please refer to the CT chest report dated 11/0610/09/2016. D/ / Ramone Plummer MD / Ramone Plummer MD Interpreting Provider: Ramone Plummer MD Head CT 12/17/16 17:07 IMPRESSION: 1. No acute intracranial abnormality. 2. Diffuse cerebral atrophy with chronic small vessel ischemic disease. D/ / Ramone Plummer MD / Ramone Plummer MD Interpreting Provider: Ramone Plummer MD Brain MRI 12/17/16 22:42 IMPRESSION: No evidence of acute ischemic insult, acute intracranial hemorrhage, or mass lesion. No evidence of intracranial metastatic disease. Interval resolution of right cerebral convexity subdural hygroma. Interval progression of cerebral white matter disease, likely progressive post radiation changes. Cerebellar volume loss appears increased. D/ / Ace Cunningham MD / Ace Cunningham MD Interpreting Provider: Ace Cunningham MD - Time Spent with Patient Total time spent providing and/or coordinating discharge services: - Constitutional Vitals: Temp Pulse Resp BP Pulse Ox 98.6 F 77 14 127/72 96 12/19/16 14:44 12/19/16 14:44 12/19/16 14:44 12/19/16 14:44 12/19/16 14:44 General appearance: Present: cachectic, A&O X 3, pleasant, no acute distress, answers questions appropriately - Head Head exam: Present: atraumatic, normocephalic - Eye Eye exam: Present: PERRL, conjuntiva pink, sclera anicteric Pupils: Present: PERRL - Neck Neck exam general surgery: Present: supple, trachea midline. Absent: lymphadenopathy - Respiratory Respiratory exam: Present: decreased breath sounds. Absent: accessory muscle use, rales, respiratory distress, rhonchi, wheezes - Cardiovascular Cardiovascular exam: Present: RRR, +S1, +S2. Absent: diastolic murmur, gallop, rubs, systolic murmur - GI/Abdominal GI/Abdominal exam: Present: normal bowel sounds, soft, no peritoneal signs. Absent: distended, tenderness - Extremities Exam Extremities exam: Present: warm, radial pulses palpable and symetrical. Absent : calf tenderness, cyanotic, pedal edema - Neurological Exam Neurological exam: Present: alert, CN II-XII intact, oriented X3, no focal deficits, strengths equal and symetr throughout. Absent: pronater drift, facial droop, speech deficit - Skin Skin exam: Present: dry, intact, pallor, warm Additional comments: ecchymosis to most of BSA
--- NOTE | 2016-12-19 17:37 | Physician Discharge Referral ---
ExtendedCare Referral Info Transfer To: [facility] Provider in Charge: Edd Amezquita CNP Provider in Charge after Transfer: PCP Institutional Level of Care: Skilled - Diagnosis (1) Frequent falls Priority: Primary Status: Acute (2) Multiple contusions Priority: Primary Status: Acute (3) TIA (transient ischemic attack) Priority: Primary Status: Resolved (4) Hemiparesis, left Priority: Secondary Status: Chronic (5) Unintentional weight loss Priority: Primary Status: Acute (6) Cerebrovascular accident Priority: Secondary Status: Chronic (7) Anemia Priority: Secondary Status: Chronic (8) Alcohol abuse Priority: Secondary Status: Chronic (9) Generalized weakness Priority: Primary Status: Acute (10) Confusion Priority: Primary Status: Resolved (11) Hypokalemia Priority: Primary Status: Resolved (12) Tobacco abuse Priority: Secondary Status: Chronic (13) COPD (chronic obstructive pulmonary disease) Priority: Secondary Status: Chronic (14) Small cell lung cancer Priority: Secondary Status: Chronic Prognosis: Fair Aware of Diagnosis: Patient, Family Aware of Prognosis: Patient, Family - Transfer Medications Prescriptions: LORazepam [Ativan] 1 mg PO HS PRN #7 tablet PRN Reason: Anxiety Oxycodone HCl 15 mg PO TID PRN #21 tablet PRN Reason: Pain Zolpidem [Ambien] 10 mg PO HS #7 tablet Home Medications: Montelukast Sodium [Singulair] 10 mg PO DAILY 02/05/15 [History] Tiotropium [place] [Spiriva] 18 mcg IH DAILY 02/05/15 [History] Aspirin [Adult Low Dose Aspirin EC] 81 mg PO DAILY 10/21/15 [History] Albuterol Sulfate [Proair Hfa] 2 puff IH Q4H PRN 12/17/16 [History] Buspirone HCl [Buspar] 10 mg PO DAILY 12/17/16 [History] Citalopram [CeleXA] 40 mg PO DAILY 12/17/16 [History] Fluticasone/Salmeterol [Advair 250-50 Diskus] 1 each IH BID 12/17/16 [History] Lidocaine/Prilocaine CREAM [Emla] 1 appl TP ONCE PRN 12/17/16 [History] Megestrol Acetate [Megace] 400 mg PO BID PRN 12/17/16 [History] LORazepam [Ativan] 1 mg PO HS PRN #7 tablet 12/19/16 [Rx] Oxycodone HCl 15 mg PO TID PRN #21 tablet 12/19/16 [Rx] Zolpidem [Ambien] 10 mg PO HS #7 tablet 12/19/16 [Rx] Allergies/Adverse Reactions: Allergies No Known Allergies Allergy (Verified 05/12/16 11:28) - Respiratory Orders Smoking Cessation: Smoking cessation has been advised. For more information, call the [place] Tobacco Quit Line at 3-264-ZVSC-NOW. - Ancillary Orders May use pressure relief devices daily prn, May go on LEONARDO w/family/respon libertarian w /meds at nurse discretion PRN, May have alcoholic beverages, May consult with Dentist, Personal Injury Specialist, Outside Barrel Lathe Operator PRN - Advance Directives Living Will: No Power of Packaging Assembler: No Code Status: Full Code - Mobility Orders Ambulate (per pT) - Rehabiliation Orders Rehab Potential: Fair Rehab Orders: ROM Exercises, Evaluation for Physical Therapy, Evaluation for Occupational Therapy, Evaluation for Speech Therapy - Treatments Skin tear care topically daily PRN per policy, May check for fecal impaction rectally daily PRN, Fleet enema rectally every other day PRN cleansing purposes - Diet Orders Mechanical Soft (poor dentition) House Supplement per Dietary: ensure TIDWM CERTIFICATION: I certify that the transfer of the above named patient to an Extended Care Facility is necessary for the continuing treatment of the diagnosis listed. The above information is true and accurate reflection of patient's current condition. Confidential - Redisclosure prohibited without a patient's written consent.
== END 2016-12-19 18:31 ==
LOC: EMEROO 15:58 → 3BNU 15:58
PROVIDERS: ADMIT Nurse Practitioner Family; ATTEND Nurse Practitioner Family